=== PATIENT | male | born 1945 | race Caucasian/White ===

== ENCOUNTER 2017-01-26 17:19 | Inpatient (IN) | payer OTHER ==
[~2017-01-26] VITALS: Ht 181.6 cm; Wt 108.0 kg
--- NOTE | 2017-01-26 17:34 | NUR ---
UNABLE TO OBTAIN HOME MEDICATION LIST, PT DOES NOT REMEMBER DOSAGES AND EXACT MEDICATION NAMES.
[2017-01-26] MEDS ORDERED: FINA5TAB11 PO (17:50)
[2017-01-26] MEDS ORDERED: ASPI-605 PO (17:50)
[2017-01-26] MEDS ORDERED: SIMV20TA6 PO (17:50)
[2017-01-26] MEDS ORDERED: NPH,100V SQ (17:50)
[2017-01-26] MEDS ORDERED: LISI-603 PO (17:50)
[2017-01-26] MEDS ORDERED: NITR0.4T48 SL (17:50)
[2017-01-26] MEDS ORDERED: METF850T2 PO (17:50)
[2017-01-26] MEDS ORDERED: METO-304 PO (17:50)
[2017-01-26] MEDS ORDERED: HUMULIN R (17:50)
[2017-01-26] MEDS ORDERED: HUMULIN N (17:51)
--- NOTE | 2017-01-26 18:05 | NUR ---
PATIENT WAS SEEN BY DR BENSON FOR SYNCOPAL EPSIDOE AT [facility] TD WHILE AMBULATING. PATIENT IS NOW AWAKE, ALERT, ORIENTED X4. BS IS 119. PLACED ON CONTINUOUS MONITORING. IV PLACED, EKG DONE, LABS PENDING. DAUGHTER AT BEDSIDE.
[2017-01-26 18:12] LABS: BASOPHILS % (AUTO) 0.5 % (0.0-2.0); EOSINOPHILS # (AUTO) 0.3 K/uL (0.0-0.7); EOSINOPHILS % (AUTO) 3.2 % (0.0-7.0); HEMATOCRIT 44.2 % (40-50); HEMOGLOBIN 14.6 G/DL (14.0-18.0); LYMPHOCYTES # (AUTO) 1.5 K/UL (0.8-4.8); LYMPHOCYTES % (AUTO) 16.3 % (20.5-51.5); MEAN CORPUSCULAR HEMOGLOBIN 29.1 UUG (27.0-31.0); MEAN CORPUSCULAR HGB CONC 33 g/dL (32.0-37.0); MEAN CORPUSCULAR VOLUME 87.8 FL (82.0-92.0); MONOCYTES # (AUTO) 0.7 K/UL (0.1-1.30); MONOCYTES % (AUTO) 7.5 % (0.0-11.0); NEUTROPHILS # (AUTO) 6.6 K/UL (1.8-8.9); NEUTROPHILS % (AUTO) 72.5 % (38.5-71.5); PLATELET COUNT (AUTO) 176 K/UL (150-450); RED BLOOD CELL COUNT(AUTO) 5.03 MIL/UL (4.7-6.1); WHITE BLOOD COUNT (AUTO) 9.1 K/UL (4.0-11.2)
[2017-01-26 18:17] LABS: CREATININE 1.3 mg/dL (0.6-1.3); POTASSIUM 3.6 mmol/L (3.5-5.1)
[2017-01-26 18:33] LABS: BILIRUBIN,DIRECT 0.1 mg/dL (0.0-0.2); BILIRUBIN,TOTAL 0.7 mg/dL (0.2-1.0)
--- NOTE | 2017-01-26 18:48 | NUR ---
CALL OUT TO [facility] MADE.
[2017-01-26] MEDS ORDERED: METOPROLOL TARTRATE 50 MG TABLET PO ONE (19:15)
[2017-01-26] MEDS ORDERED: ENOXAPARIN SODIUM 100 MG/ML DISP.SYRIN SQ ONE ×2 (19:15→19:41)
[2017-01-26] MEDS ORDERED: ASPIRIN 81 MG TAB.CHEW PO ONE (19:15)
--- NOTE | 2017-01-26 19:25 | NUR ---
DR. EPSTEIN, [employer]ARDIOLOGY [employer]INE[employer] PAGED, WAITING FOR CALL BACK.
[2017-01-26] MEDS ORDERED: METOPROLOL TARTRATE 50 MG TABLET ONE (19:41)
[2017-01-26] MEDS ORDERED: ASPIRIN 81 MG TAB.CHEW ONE (19:41)
--- NOTE | 2017-01-26 20:09 | NUR ---
SPOKE WITH USHA REINOSO IN CCU. REPORT GIVEN. Pt. admitted to CCU , under care of Dr. SHAZIA BLANCHARD Belongs List completed
[2017-01-26] MEDS: ASPIRIN EC 81 MG TABLET.DR PO SCH (20:15)
[2017-01-26] MEDS: FINASTERIDE 5 MG TABLET PO SCH (20:15)
[2017-01-26] MEDS ORDERED: METFORMIN HCL 850 MG TABLET PO SCH (20:15)
[2017-01-26] MEDS ORDERED: METOPROLOL TARTRATE 50 MG TABLET PO SCH (20:15)
[2017-01-26] MEDS ORDERED: ONDANSETRON 4 MG/2 ML VIAL IV PRN (20:15)
[2017-01-26] MEDS ORDERED: MORPHINE SULFATE 2 MG/1 ML DISP.SYRIN IV PRN (20:15)
[2017-01-26] MEDS ORDERED: NITROGLYCERIN 0.4 MG/TAB BOTTLE SL PRN ×2 (20:15)
[2017-01-26] MEDS ORDERED: METOPROLOL SUCCINATE XL 50 MG TAB.SR.24H PO SCH (20:15)
[2017-01-26] MEDS: LISINOPRIL 20 MG TABLET PO SCH (20:15)
--- NOTE | 2017-01-26 21:22 | NUR ---
WAITING ON ROLLOVER FROM ADMITTING.
--- NOTE | 2017-01-26 21:47 | NUR ---
TRANSPORTED PATIENT TO CCU VIA GURNEY AND PLACED ON MONITOR. PATIENT WITH NO ACUTE DISTRESS NOTED. ALL BELONGINGS WITH PATIENT. HAND OFF GIVEN TO USHA REINOSO
[2017-01-26 22:00] VITALS: BP 141/79
--- NOTE | 2017-01-26 22:00 | NUR ---
Admitted to CCU room #2. Daughter Alecia Russo ([phone]) with patient. Alert & orient X3. Vital signs stable. NSR with occasional paced beat / forging press setter up. No C/O discomfort; except, C/O right upper arm pain from fall at movies. H/L right forearm, site clear.
[2017-01-26 22:15] VITALS: BP 134/73
[2017-01-26 22:30] VITALS: BP 137/78
[2017-01-26 22:45] VITALS: BP 136/70
[2017-01-26] MEDS ORDERED: NORMAL SALINE FLUSH 10 ML DISP.SYRIN IV PRN (22:45)
[2017-01-26 23:00] VITALS: BP 133/77
--- NOTE | 2017-01-26 23:00 | NUR ---
Start home meds in AM / Antonio Tanner MD
[2017-01-27] VITALS (27 sets, daily range): BP systolic 120–171; BP diastolic 53–98
[2017-01-27] MEDS ORDERED: MORPHINE SULFATE 2 MG/1 ML DISP.SYRIN IV ONE (04:15)
[2017-01-27] MEDS ORDERED: MORPHINE SULFATE 2 MG/1 ML DISP.SYRIN ONE (04:18)
--- NOTE | 2017-01-27 04:30 | NUR ---
Notified MD of patients right arm pain severe; med / eMar / same, with desired effect. Started O2 2L N/C; SaO2 93%, with desired effect.
[2017-01-27] MEDS: NORMAL SALINE FLUSH 10 ML DISP.SYRIN IV SCH ×3 (05:45→21:13)
[2017-01-27 06:31] LABS: BASOPHILS # (AUTO) 0.1 K/uL (0.0-8.0); BASOPHILS % (AUTO) 0.6 % (0.0-2.0); EOSINOPHILS # (AUTO) 0.1 K/uL (0.0-0.7); EOSINOPHILS % (AUTO) 1.2 % (0.0-7.0); HEMATOCRIT 46.8 % (40-50); HEMOGLOBIN 15.7 G/DL (14.0-18.0); LYMPHOCYTES # (AUTO) 1.1 K/UL (0.8-4.8); LYMPHOCYTES % (AUTO) 11.4 % (20.5-51.5); MEAN CORPUSCULAR HEMOGLOBIN 29.6 UUG (27.0-31.0); MEAN CORPUSCULAR HGB CONC 34 g/dL (32.0-37.0); MEAN CORPUSCULAR VOLUME 88.6 FL (82.0-92.0); MONOCYTES # (AUTO) 0.6 K/UL (0.1-1.30); MONOCYTES % (AUTO) 6.7 % (0.0-11.0); NEUTROPHILS # (AUTO) 7.7 K/UL (1.8-8.9); NEUTROPHILS % (AUTO) 80.1 % (38.5-71.5); PLATELET COUNT (AUTO) 170 K/UL (150-450); RED BLOOD CELL COUNT(AUTO) 5.29 MIL/UL (4.7-6.1); WHITE BLOOD COUNT (AUTO) 9.6 K/UL (4.0-11.2)
[2017-01-27 06:54] LABS: BAND % (MANUAL) 9 % (0-10); EOSINOPHILS % (MANUAL) 1 % (0-8); LYMPHOCYTES % (MANUAL) 18 % (20-40); MONOCYTES % (MANUAL) 4 % (2-10); NEUTROPHILS % (MANUAL) 68 % (42-75)
[2017-01-27 07:06] LABS: CREATININE 1.2 mg/dL (0.6-1.3); MAGNESIUM 1.8 mg/dL (1.8-2.4); POTASSIUM 4.6 mmol/L (3.5-5.1)
[2017-01-27] MEDS ORDERED: METFORMIN HCL 850 MG TABLET PO SCH (07:57)
--- NOTE | 2017-01-27 08:00 | NUR ---
Report received.Pt remains awake,alert,oriented.Denies chest pain,discomfort.SR on monitor.No ectopies noted.Pt able to move all extremities.No neuro deficit noted.Spoke with regarding elevated blood sugar.New orders for accu-chek received.Will continue to monitor.
[2017-01-27] MEDS ORDERED: DEXTROSE 50% 50 ML DISP.SYRIN IV PRN (08:30)
[2017-01-27] MEDS ORDERED: ENOXAPARIN SODIUM 100 MG/ML DISP.SYRIN SQ ONE (09:00)
[2017-01-27] MEDS: BLOOD SUGAR DIAGNOSTIC 1 EACH STRIP VI SCH ×4 (09:07→21:12)
[2017-01-27] MEDS: LISINOPRIL 20 MG TABLET PO SCH ×2 (09:08→16:29)
[2017-01-27] MEDS: METOPROLOL TARTRATE 25 MG TABLET PO SCH ×2 (09:08→16:30)
[2017-01-27] MEDS: FINASTERIDE 5 MG TABLET PO SCH (09:08)
[2017-01-27] MEDS: INSULIN REGULAR, HUMAN 300 UNIT/3 ML VIAL SQ PRN ×3 (09:10→16:38)
[2017-01-27] MEDS: ASPIRIN EC 81 MG TABLET.DR PO SCH (09:11)
--- NOTE | 2017-01-27 10:30 | NUR ---
Echocardiogram in progress at bedside.
--- NOTE | 2017-01-27 11:10 | NUR ---
Seen,examined by .
--- NOTE | 2017-01-27 13:00 | NUR ---
Pt daughter at bedside,updated on pt status.
--- NOTE | 2017-01-27 13:10 | NUR ---
USHA Kumar from [facility] called,updated on pt information.
--- NOTE | 2017-01-27 16:51 | NUR ---
Pt remains awake,alert.Denies pain,discomfort.Denies chest pain.Will continue to monitor.
--- NOTE | 2017-01-27 17:00 | NUR ---
Seen,examined by hypo splasher with new orders noted.
[2017-01-27] MEDS ORDERED: CLOPIDOGREL 75 MG TABLET PO ONE (17:30)
[2017-01-27] MEDS ORDERED: FUROSEMIDE 20 MG/2 ML VIAL IV ONE (17:30)
--- NOTE | 2017-01-27 19:50 | NUR ---
Daughter Alecia called in for update; very appreciative of care and information.
--- NOTE | 2017-01-27 20:00 | NUR ---
Resting comfortably; awake, alert. Aware of care plans, expresses understanding. Denies chest pain/discomfort; states right shoulder much better today. Stable rhythm and VS. Rarely pacing. Resp. easy and regular, on O2 2L/min with excellent sats. Voiding well from IV Lasix dose received earlier. Please see CCU flowsheet for full assessment and clinical data.
[2017-01-27] MEDS ORDERED: SIMVASTATIN 20 MG TABLET PO SCH (21:00)
[2017-01-27] MEDS: ENOXAPARIN SODIUM 60 MG/0.6 ML DISP.SYRIN SQ SCH (21:15)
[2017-01-27] MEDS: INSULIN REGULAR, HUMAN 300 UNITS/3 ML VIAL SQ PRN (21:15)
[2017-01-28] VITALS (17 sets, daily range): BP systolic 130–170; BP diastolic 55–87
--- NOTE | 2017-01-28 00:01 | NUR ---
Has been sleeping soundly. Remains with stable VS and rhythm. In no apparent acute distress. Quiet, dark environment conducive for rest/sleep maintained.
[2017-01-28 05:26] LABS: CREATININE 1.3 mg/dL (0.6-1.3); MAGNESIUM 1.8 mg/dL (1.8-2.4); PHOSPHOROUS 3.9 mg/dL (2.5-4.9); POTASSIUM 4.4 mmol/L (3.5-5.1)
[2017-01-28 05:28] LABS: BASOPHILS # (AUTO) 0.1 K/uL (0.0-8.0); BASOPHILS % (AUTO) 0.8 % (0.0-2.0); EOSINOPHILS # (AUTO) 0.3 K/uL (0.0-0.7); EOSINOPHILS % (AUTO) 3.3 % (0.0-7.0); HEMATOCRIT 44.2 % (40-50); HEMOGLOBIN 14.8 G/DL (14.0-18.0); LYMPHOCYTES # (AUTO) 1.3 K/UL (0.8-4.8); LYMPHOCYTES % (AUTO) 14.4 % (20.5-51.5); MEAN CORPUSCULAR HEMOGLOBIN 29.5 UUG (27.0-31.0); MEAN CORPUSCULAR HGB CONC 33 g/dL (32.0-37.0); MEAN CORPUSCULAR VOLUME 88.4 FL (82.0-92.0); MONOCYTES # (AUTO) 0.8 K/UL (0.1-1.30); MONOCYTES % (AUTO) 8.1 % (0.0-11.0); NEUTROPHILS # (AUTO) 6.8 K/UL (1.8-8.9); NEUTROPHILS % (AUTO) 73.4 % (38.5-71.5); PLATELET COUNT (AUTO) 180 K/UL (150-450); WHITE BLOOD COUNT (AUTO) 9.3 K/UL (4.0-11.2)
[2017-01-28] MEDS: NORMAL SALINE FLUSH 10 ML DISP.SYRIN IV SCH ×2 (05:50→16:22)
--- NOTE | 2017-01-28 06:00 | NUR ---
Lab works drawn. Noted pt in good spirits, talkative, is very pleasant. AM care rendered and pt tolerated procedures well. Stable, pain-free night. Please see CCU flowsheet for trends and clinical data.
[2017-01-28] MEDS: BLOOD SUGAR DIAGNOSTIC 1 EACH STRIP VI SCH ×3 (08:12→16:22)
[2017-01-28] MEDS: INSULIN REGULAR, HUMAN 300 UNITS/3 ML VIAL SQ PRN (08:14)
--- NOTE | 2017-01-28 08:24 | NUR ---
delgado 157, covered with 2 units humulin R SQ Addendum: 01/28/17 at 0824 by SARA GALVAN RN Amended: Links added. Addendum: 01/28/17 at 0828 by SARA GALVAN RN Amended: Links added. Addendum: 01/28/17 at 0902 by SARA GALVAN RN Amended: Links added. Addendum: 01/28/17 at 0904 by SARA GALVAN RN Amended: Links added.
--- NOTE | 2017-01-28 08:28 | NUR ---
denies chest pain at present. but c/o very mild right shoulder pain. prefers no pain med. Addendum: 01/28/17 at 827 by SARA GALVAN RN Amended: Gely added. Addendum: 01/28/17 at 901 by SARA GALVAN RN Amended: Links added. Addendum: 01/28/17 at 04 by SARA GALVAN RN Amended: Links added.
[2017-01-28] MEDS: FINASTERIDE 5 MG TABLET PO SCH (08:47)
[2017-01-28] MEDS: LISINOPRIL 20 MG TABLET PO SCH ×2 (08:47→16:23)
[2017-01-28] MEDS: METOPROLOL TARTRATE 25 MG TABLET PO SCH ×2 (08:48→16:24)
[2017-01-28] MEDS: ENOXAPARIN SODIUM 60 MG/0.6 ML DISP.SYRIN SQ SCH (08:51)
[2017-01-28] MEDS ORDERED: ASPIRIN 325 MG TABLET PO SCH (09:00)
[2017-01-28] MEDS ORDERED: ASPIRIN EC 81 MG TABLET.DR PO SCH (09:00)
[2017-01-28] MEDS ORDERED: CLOPIDOGREL 75 MG TABLET PO SCH (09:00)
[2017-01-28] MEDS ORDERED: CLOP75TA15 PO (09:01)
[2017-01-28] MEDS ORDERED: RXENO XX (09:01)
--- NOTE | 2017-01-28 09:01 | NUR ---
seen by dr Sarah Philip. orders received. case management informed of patient;s med clearance ok to transfer to [facility]. patient is informed and acknowledges info Addendum: 01/28/17 at 0902 by SARA GALVAN RN Amended: Links added. Addendum: 01/28/17 at 0904 by SARA GALVAN RN Amended: Links added.
--- NOTE | 2017-01-28 09:04 | NUR ---
dangled at the bedside, ate breakfast, voided then assisted back to bed Addendum: 01/28/17 at 0904 by SARA GALVAN RN Amended: Links added.
--- NOTE | 2017-01-28 10:02 | NUR ---
12 lead ekg done/chest xray done and right shoulder xray done at the bedside. Addendum: 01/28/17 at 1003 by SARA GALVAN RN Amended: Links added.
--- NOTE | 2017-01-28 10:54 | NUR ---
Had been in contact with SMILEY Daugherty from [facility] [ ; ], about the patient's transfer to a [facility]. She will present the case to their MD, review it and see if they will be able to find a bed. Once they have a bed available, they will call the unit and arrange for the transfer. Spoke to the patient and he was in agreement with the transfer. He is also aware that because his case is cardiac, he might be transferred to [facility]. Informed him that we are just waiting for their decision and a bed available. Updated the patient's RN, Vanesa, on the transfer plan.
--- NOTE | 2017-01-28 11:19 | NUR ---
seen by navin Samuel Addendum: 01/28/17 at 1119 by SARA GALVAN RN Amended: Gely harrison. Addendum: 01/28/17 at 1138 by SARA GALVAN RN Amended: Gely harrison.
[2017-01-28] MEDS: INSULIN REGULAR, HUMAN 300 UNIT/3 ML VIAL SQ PRN ×2 (11:35→16:25)
--- NOTE | 2017-01-28 11:38 | NUR ---
delgado 325, covered with 16 units humulin sq Addendum: 01/28/17 at 1138 by SARA GALVAN RN Amended: Links added.
--- NOTE | 2017-01-28 11:40 | NUR ---
JESSIE report given to Wendy RN Addendum: 01/28/17 at 1140 by SARA GALVAN RN Amended: Links added.
--- NOTE | 2017-01-28 12:55 | NUR ---
manager case from [facility] called to get report. will call back for bed assignment Juan Sutherland Addendum: 01/28/17 at 1255 by SARA GALVAN RN Amended: Links added.
--- NOTE | 2017-01-28 16:35 | NUR ---
delgado 230, covered with 8units lorie SQ Addendum: 01/28/17 at 1635 by SARA GALVAN RN Amended: Links added.
--- NOTE | 2017-01-28 16:40 | NUR ---
Fausto Sutherland called to provide bed, accepting MD, and phone # to give report to. patient was informed
[2017-01-28 18:22] LABS: *BILIRUBIN,URIN NEGATIVE (NEGATIVE); *BLOOD, URINE NEGATIVE (NEGATIVE); *CLARITY,URINE SLIGHTLY CLOUDY (CLEAR); *COLOR,URINE YELLOW (YELLOW); *KETONES,URINE NEGATIVE (NEGATIVE); *PROTEIN,URINE 2+ (NEGATIVE); *UROBILINOGEN,URINE 0.2 E.U./dl (NORMAL); LEUKOCYTE ESTERASE ,URINE NEGATIVE (NEGATIVE); NITRITE, URINE NEGATIVE (NEGATIVE); PH,URINE 5.5 (5.0-8.0)
--- NOTE | 2017-01-28 18:25 | NUR ---
[facility] unable to get report at this time. staff will be available next shift. Fausto rose [facility] tom Addendum: 01/28/17 at 1828 by SARA GALVAN RN Amended: Gely added. Addendum: 01/28/17 at 1828 by SARA GALVAN RN Amended: Links added.
[2017-01-28 18:26] LABS: UGLUCOSE 2+ (NEGATIVE)
[2017-01-28 18:27] LABS: BACTERIA,URINE NONE SEEN /HPF (NONE SEEN); RBC,URINE 0-3 /HPF (0-3); SQUAMOUS EPITHELIAL CELL,UR NONE SEEN /HPF (NONE SEEN); WBC,URINE 0-3 /HPF (0-3)
[2017-01-28 18:33] LABS: *AMPHETAMINE, URINE NEGATIVE (NEGATIVE); *BARBITURATE, URINE NEGATIVE (NEGATIVE); *CANNABINOID, URINE NEGATIVE (NEGATIVE); *COCCAINE, URINE NEGATIVE (NEGATIVE); *OPIATE, URINE NEGATIVE (NEGATIVE); *PHENCYCLIDINE SCREEN,URINE NEGATIVE (NEGATIVE)
--- NOTE | 2017-01-28 18:41 | NUR ---
ANNAAR report given to JAYRO Cruz RNU Koko Addendum: 01/28/17 at 1841 by SARA GALVAN RN Amended: Links added.
--- NOTE | 2017-01-28 19:05 | NUR ---
JESSIE report given to Jhonny Addendum: 01/28/17 at 1906 by SARA GALVAN RN Amended: Links added.
== END 2017-01-28 19:45 | disposition short-term general hospital (02) | DRG 280 ==
LOC: ER 17:19 → CCU 21:16
PROVIDERS: ATTEND Internal Medicine
DX: I21.4 Non-ST elevation (NSTEMI) myocardial infarction (principal); I50.23 Acute on chronic systolic (congestive) heart failure; E11.9 Type 2 diabetes mellitus without complications; Z95.1 Presence of aortocoronary bypass graft; S42.91XA Fracture of right shoulder girdle, part unspecified, initial encounter for closed fracture; I25.10 Atherosclerotic heart disease of native coronary artery without angina pectoris; I11.0 Hypertensive heart disease with heart failure; Z95.0 Presence of cardiac pacemaker; R55 Syncope and collapse; G47.33 Obstructive sleep apnea (adult) (pediatric); Z86.73 Personal history of transient ischemic attack (TIA), and cerebral infarction without residual deficits; Z85.46 Personal history of malignant neoplasm of prostate; Z90.49 Acquired absence of other specified parts of digestive tract; Z87.891 Personal history of nicotine dependence; Z79.899 Other long term (current) drug therapy; Z79.84 Long term (current) use of oral hypoglycemic drugs; Z79.82 Long term (current) use of aspirin; Z79.4 Long term (current) use of insulin; E78.5 Hyperlipidemia, unspecified; I25.5 Ischemic cardiomyopathy; Z85.038 Personal history of other malignant neoplasm of large intestine; W18.30XA Fall on same level, unspecified, initial encounter; Y92.26 Movie house or cinema as the place of occurrence of the external cause
CPT/HCPCS: 36415; 70030-TC; 70450; 71010; 71020; 72125; 73030; 80307; 83735; 84100; 85025; 85730; 93005; 93307; A4663; J1650; J1815; J1940; J2270; J3490